=== PATIENT | female | born 1990 | race Caucasian/White ===

== ENCOUNTER → 2019-12-15 13:13 | Outpatient (BNVA) | payer OTHER, SELFPAY | PROVIDERS: Visit Provider Advanced Practice Midwife | DX: Z34.80 Encounter for supervision of other normal pregnancy, unspecified trimester (principal) | CPT/HCPCS: 81025; 99211 ==

== ENCOUNTER 2019-12-16 09:11 | Outpatient (REF) | payer OTHER, SELFPAY ==
--- NOTE | 2019-12-16 09:39 | US_ITS ---
EXAMINATION: FIRST TRIMESTER OB ULTRASOUND CLINICAL INFORMATION: Unknown LMP. Check size and dates. COMPARISON: None TECHNIQUE: Transabdominal first trimester OB ultrasound FINDINGS: The uterus is normal in size and shape. There is an intrauterine gestational sac. Dane-rump length measures 0.6 cm suggesting gestational age of 6 weeks 3 days with estimated date of delivery of 08/07/2020. heart rate is 115 bpm. There is a yolk sac. The right ovary measures 4.2 x 3.6 x 2.6 cm and contains a 2.2 x 2.4 x 2 cm cyst. The left ovary measures 3.1 x 2.2 x 2.6 cm and is normal-appearing. There is no fluid in the pelvis. IMPRESSION: Single viable intrauterine . From today's measurements gestational age is estimated at 6 weeks 3 days with estimated date of delivery of 08/07/2020. Low normal heart rate of 115 bpm.
== END 2019-12-16 09:12 | disposition home or self-care (01) ==
LOC: HO.US 09:11
PROVIDERS: Visit Provider Advanced Practice Midwife
DX: Z34.81 Encounter for supervision of other normal pregnancy, first trimester (principal)
CPT/HCPCS: 76801

== ENCOUNTER 2019-12-24 09:23 | Outpatient (REF) | payer OTHER, SELFPAY ==
--- NOTE | 2019-12-24 10:08 | US_ITS ---
EXAMINATION: US OBSTETRICAL FOLLOW UP WITH BIOPHYSICAL PROFILE CLINICAL INFORMATION: Follow up low heart rate. COMPARISON: Previous exam 12/16/2019. TECHNIQUE: Real time transabdominal imaging with color and M-mode Doppler. FINDINGS: The uterus is normal in size and shape. There is an intrauterine gestational sac. Realitos-rump length measures 1.2 cm suggesting gestational age of 7 weeks 4 days with estimated date of delivery of 08/07/2020. heart rate is 161 bpm. There is a yolk sac. There is hypoechoic soft tissue adjacent to the gestational sac questionable for subchorionic hemorrhage. The maternal ovaries are normal. US/US OB follow up IMPRESSION: Single viable intrauterine . From today's measurements gestational age is estimated at 7 weeks 4 days with estimated date of delivery of 08/07/2020. Normal heart rate.
== END 2019-12-24 09:24 | disposition home or self-care (01) ==
LOC: HO.US 09:23
PROVIDERS: Visit Provider Advanced Practice Midwife
DX: O36.80X0 Pregnancy with inconclusive fetal viability, not applicable or unspecified (principal)
CPT/HCPCS: 76816

== ENCOUNTER → 2020-01-06 10:02 | Outpatient (BNVA) | payer OTHER, SELFPAY | PROVIDERS: Visit Provider Advanced Practice Midwife | DX: O99.331 Smoking (tobacco) complicating pregnancy, first trimester (principal); O34.219 Maternal care for unspecified type scar from previous cesarean delivery; Z3A.09 9 weeks gestation of pregnancy | CPT/HCPCS: 99212 ==

== ENCOUNTER 2020-01-17 09:25 | Outpatient (REF) | payer OTHER, SELFPAY ==
[2020-01-17 11:49] LABS: MANUAL DIFF FLAG NO
[2020-01-17 12:03] LABS: Basophils Percent Auto 0.2 % (0-2); Eosinophils Absolute Auto 0.2 X10*3/uL (0.0-0.4); Eosinophils Percent Auto 1.3 % (0-4); Hematocrit 42.7 % (37-47); Hemoglobin 13.9 g/dl (12.0-16.0); Imm Gran Abs Auto 0.04 X10*3/uL (0.00-0.03); Imm Gran Pct Auto 0.3 % (0.0-0.4); Lymphocytes Absolute Auto 2.4 X10*3/uL (1.2-4.9); Lymphocytes Percent Auto 18.5 % (20-40); Mean Corpuscular HGB Conc 32.6 g/dl (31.0-35.0); Mean Corpuscular Hemoglobin 28.1 pg (27.0-33.0); Mean Corpuscular Volume 86.3 fL (80-98); Mean Platelet Volume 10.8 fL (9.4-12.3); Monocytes Absolute Auto 0.5 X10*3/uL (0.1-1.2); Monocytes Percent Auto 4.2 % (2-11); Neutrophils Absolute Auto 9.6 X10*3/uL (2.0-8.3); Neutrophils Percent Auto 75.5 % (45-73); Platelet Count 299 X10*3/uL (160-400); Red Blood Count 4.95 X10*6/uL (4.20-5.50); Red Cell Distribution Width 13.1 % (11.0-16.0); White Blood Count 12.7 X10*3/uL (4.8-10.8)
[2020-01-17 12:44] LABS: Amphetamine Screen Urine Not Detected (Not Detect); Barbiturates, Urine Not Detected (Not Detect); Benzodiazepines Screen Urine Not Detected (Not Detect); Cannabinoid Screen Urine POSITIVE (Not Detect); Cocaine Screen Urine Not Detected (Not Detect); Opiate Screen Urine Not Detected (Not Detect); Phencyclidine Screen Urine Not Detected (Not Detect)
[2020-01-17 13:00] LABS: Syphilis Screen Nonreactive (Nonreactive)
[2020-01-18 08:28] LABS: HBsAGNum1 0.21 S/CO (0.00-0.99); HIV AB/AG Nonreactive (Nonreactive); Hepatitis B Surface Antigen Negative (Negative); ~HepC Num1 0.08 S/CO (0.00-0.79); ~Hepatitis C Antibody Nonreactive (Nonreactive)
[2020-01-18 09:06] LABS: Rubella IgG Antibody 2.49 index; Varicella IgG Antibody >4000.00 index
== END 2020-01-17 09:26 | disposition home or self-care (01) ==
LOC: HO.LAB 09:25
PROVIDERS: Visit Provider Advanced Practice Midwife
DX: Z34.90 Encounter for supervision of normal pregnancy, unspecified, unspecified trimester (principal)
CPT/HCPCS: 36415; 80307; 85025; 86762; 86780; 86787; 86803; 86850; 86886; 86900; 86901; 87086; 87340; 87389

== ENCOUNTER 2020-01-19 11:28 | Outpatient (REF) | payer OTHER, SELFPAY ==
[2020-01-20 02:53] LABS: CT PCR NOT DETECTED (Not Detect.); NG PCR NOT DETECTED (Not Detect.)
== END 2020-01-19 11:29 | disposition home or self-care (01) ==
LOC: HO.LAB 11:28
PROVIDERS: Visit Provider Advanced Practice Midwife
DX: Z34.80 Encounter for supervision of other normal pregnancy, unspecified trimester (principal); Z13.31 Encounter for screening for depression; F17.200 Nicotine dependence, unspecified, uncomplicated
CPT/HCPCS: 87491; 87591

== ENCOUNTER 2020-01-21 13:57 | Outpatient (REF) | payer OTHER, SELFPAY ==
--- NOTE | 2020-01-21 14:03 | US_ITS ---
EXAMINATION: OBSTETRICAL ULTRASOUND, FIRST TRIMESTER HISTORY: 29-year-old at 11.4 weeks of gestation BMI 43.4 NT screening COMPARISON: 12/24/2019 TECHNIQUE: Real time transabdominal imaging with color and M-mode Doppler. FINDINGS: A single, live IUP CRL of 58 mm c/w 12.3wks is noted. Heart Rate: 161 beats per minute. Normal yolk sac seen. NT was 1.1.mm. NB Present The embryo appears sonographically wnl for this GA. Both maternal ovaries are seen and appear normal. GESTATIONAL AGE: 1. Established GA: 11.4 wks 2. GA from [facility]: 12.3 wks ESTIMATED DATE OF DELIVERY: 1. Established SARIKA: 08/07/2020 2. SARIKA from [facility]: 08/01/2020 US/US OB 1T nuc measure IMPRESSION: 1. A single live IUP 2. Size equals dates 3. NT of 1.1 mm MFM Consultation: I reviewed the ultrasound findings along with significance of NT measurement. The NT of less than 3mm is generally reassuring. However, the sensitivity for T21 detection is only 60%. I reviewed the availability of serum aneuploidy screening which includes cell-free DNA and placental protein based tests. I discussed the sensitivity, false-positive rate, and other limitations associated with each test. I also reviewed the availability of invasive diagnostic tests that are associated small but definite risk of miscarriage. We also reviewed the differences between screening tests and diagnostic tests. After our discussion, she opted for the First trimester screening that is based on cell-free DNA or non-invasive testing (NIPT). The result will be faxed to your office in approximately 7 days. A follow up at 18 weeks for survey has been scheduled. Thank you very much for this referral. Majority of this visit was spent reviewing her care and counselling her in face to face time: Time spent 20 min.
== END 2020-01-21 13:58 | disposition home or self-care (01) ==
LOC: HO.US 13:57
PROVIDERS: Visit Provider Advanced Practice Midwife
DX: Z34.90 Encounter for supervision of normal pregnancy, unspecified, unspecified trimester (principal); Z36.82 Encounter for antenatal screening for nuchal translucency
CPT/HCPCS: 76813

== ENCOUNTER → 2020-02-16 11:30 | Outpatient (BNVA) | payer OTHER, SELFPAY | PROVIDERS: Visit Provider Advanced Practice Midwife | DX: Z76.89 Persons encountering health services in other specified circumstances (principal) ==

== ENCOUNTER → 2020-03-15 15:25 | Outpatient (BNVA) | payer OTHER, SELFPAY | PROVIDERS: PCP Internal Medicine; Visit Provider Advanced Practice Midwife | DX: Z76.89 Persons encountering health services in other specified circumstances (principal) | CPT/HCPCS: 99212 ==

== ENCOUNTER 2020-03-17 11:56 | Outpatient (REF) | payer OTHER, SELFPAY ==
--- NOTE | 2020-03-17 12:03 | US_ITS ---
EXAMINATION: US OBSTETRICAL CLINICAL INFORMATION: 29-year-old at 19.4 weeks of gestation Suspected anomaly COMPARISON: 01/21/2020 TECHNIQUE: Real-time transabdominal ultrasound was performed using C1-5 megahertz transducer. FINDINGS: A single, active, fetus is seen in breech presentation. The placenta is posterior without previa, and the amniotic fluid volume is wnl. MEASUREMENTS: 1. Biparietal Diameter: 5.1 cm; 21.3 wks 2. Occipital Frontal Diameter: 6.3 cm 3. Head Circumference: 18.0 cm; 20.4 wks 4. Abdominal Circumference: 15.4 cm; 20.4 wks 5. Femur Length: 2.3 cm; 20.2 wks 6. Humerus Length: 3.2 cm; 20.5 wks 7. Tibia Length: 2.8 cm; 20.2 wks 8. Ulna Length: 3.1 cm; 21.3 wks 9. Lateral ventricle: 0.49 cm 10. Cerebellum: 2.1 cm; 21.2 wks 11. Cisterna Magna: 0.4 cm 12. Nuchal Fold: 3.7 mm 13. Heart Rate: 150 beats per minute Rt ovary: normal Lt ovary: normal Cervical length 3.6 cm on T/A. Marginal placental cord insertion was noted. GESTATIONAL AGE: 1. Established GA: 19.4 wks 2. GA from [facility]: 20.5 wks ESTIMATED DATE OF DELIVERY: 1. Established SARIKA: 08/07/2020 2. SARIKA from [facility]: 07/30/2020 ANATOMY: The visualized anatomy includes but not limited to: 1. Cranium: Normal 2. Intracranial anatomy: cavum septum pellucidi, lateral ventricles, choroid plexus, cerebellum, posterior fossa, third and fourth ventricles. 3. face: orbits, lip/palate, profile, nasal bone 4. Heart: four-chamber view of the heart, ventricular septum, foramen ovale, pulmonary vein, left and right outflow tracts, three-vessel view, 3 vessel trachea view, aortic and ductal arches, situs.. 5. Diaphragm: Normal 6. Abdominal wall: Normal 7. Cord Insertion: Normal 8. Spine: Cervical, thoracic, lumbar, sacral. 9. Stomach: Normal size and shape 10. Right Kidney: Normal 11. Left Kidney: Normal 12. 3 vessel cord: Normal 13. Upper extremity: Open hands, fifth digit. 14. Lower extremity: Tibia, fibula, bilateral feet. 15. Bladder: Normal 16. Genitalia: Male, patient aware US/US OB /maternal detail IMPRESSION: 1. Single, living, intrauterine with appropriate biometry. 2. Normal survey DISCUSSION: I reviewed today's ultrasound findings. We discussed the limitations of ultrasound in diagnosing aneuploidy and other congenital abnormalities. I reviewed the differences between screening test and diagnostic test. Amniocentesis was discussed and declined. Marginal placental cord insertion has been associated with increased incidence of IUGR. Interval growth evaluation throughout the is suggested. She was informed that the baseline incidence of congenital abnormalities is approximately 3-5%. Not all these conditions are diagnosable in utero. RECOMMENDATIONS: Thank you for allowing me to participate in her care. Visiting time 20 minutes. (3,10,7)
== END 2020-03-17 11:57 | disposition home or self-care (01) ==
LOC: HO.US 11:56
PROVIDERS: Visit Provider Advanced Practice Midwife
DX: O35.8XX0 Maternal care for other (suspected) fetal abnormality and damage, not applicable or unspecified (principal); O99.332 Smoking (tobacco) complicating pregnancy, second trimester; Z3A.19 19 weeks gestation of pregnancy
CPT/HCPCS: 76811

== ENCOUNTER → 2020-04-11 10:35 | Outpatient (BNVA) | payer OTHER, SELFPAY | PROVIDERS: PCP Internal Medicine; Visit Provider Obstetrics & Gynecology | DX: O09.629 Supervision of young multigravida, unspecified trimester (principal) | CPT/HCPCS: 99212 ==

== ENCOUNTER → 2020-05-11 10:31 | Outpatient (BNVA) | payer OTHER, SELFPAY | PROVIDERS: Visit Provider Advanced Practice Midwife | DX: Z13.89 Encounter for screening for other disorder (principal) | CPT/HCPCS: 99212 ==

== ENCOUNTER 2020-05-17 08:56 | Outpatient (REF) | payer OTHER, SELFPAY ==
[2020-05-17 10:42] LABS: MANUAL DIFF FLAG NO
[2020-05-17 10:45] LABS: Basophils Percent Auto 0.2 % (0-2); Eosinophils Absolute Auto 0.2 X10*3/uL (0.0-0.4); Eosinophils Percent Auto 1.1 % (0-4); Hematocrit 39.6 % (37-47); Hemoglobin 13.1 g/dl (12.0-16.0); Imm Gran Abs Auto 0.08 X10*3/uL (0.00-0.03); Imm Gran Pct Auto 0.6 % (0.0-0.4); Lymphocytes Absolute Auto 2.2 X10*3/uL (1.2-4.9); Lymphocytes Percent Auto 16.5 % (20-40); Mean Corpuscular HGB Conc 33.1 g/dl (31.0-35.0); Mean Corpuscular Hemoglobin 28.5 pg (27.0-33.0); Mean Corpuscular Volume 86.1 fL (80-98); Mean Platelet Volume 10.6 fL (9.4-12.3); Monocytes Absolute Auto 0.5 X10*3/uL (0.1-1.2); Monocytes Percent Auto 3.7 % (2-11); Neutrophils Absolute Auto 10.4 X10*3/uL (2.0-8.3); Neutrophils Percent Auto 77.9 % (45-73); Platelet Count 253 X10*3/uL (160-400); Red Cell Distribution Width 13.2 % (11.0-16.0); White Blood Count 13.4 X10*3/uL (4.8-10.8)
[2020-05-17 11:05] LABS: Glucose 1 Hour PP 50gm Dose 117 mg/dL (60-140)
[2020-05-17 11:36] LABS: Syphilis Screen Nonreactive (Nonreactive)
== END 2020-05-17 08:57 | disposition home or self-care (01) ==
LOC: HO.LAB 08:56
PROVIDERS: Visit Provider Obstetrics & Gynecology
DX: Z34.83 Encounter for supervision of other normal pregnancy, third trimester (principal); Z11.3 Encounter for screening for infections with a predominantly sexual mode of transmission
CPT/HCPCS: 36415; 85025; 86780; 86850; 86900; 86901

== ENCOUNTER → 2020-05-25 10:35 | Outpatient (BNVA) | payer OTHER, SELFPAY | PROVIDERS: Visit Provider Advanced Practice Midwife | DX: O43.193 Other malformation of placenta, third trimester (principal); Z3A.29 29 weeks gestation of pregnancy; F17.200 Nicotine dependence, unspecified, uncomplicated; Z98.891 History of uterine scar from previous surgery | CPT/HCPCS: 81003; 99212 ==

== ENCOUNTER 2020-05-26 09:09 | Outpatient (REF) | payer OTHER, SELFPAY ==
--- NOTE | ~2020-05-26 | US_ITS ---
EXAMINATION: US OBSTETRICAL (BIOPHYSICAL PROFILE) CLINICAL INFORMATION: 23-year-old at 33.1 weeks of gestation Gestational diabetes on insulin COMPARISON: 03/10/2020 TECHNIQUE: Biophysical profile is performed over 30 minutes with assessment of breathing, gross body movement, tone, and qualitative amniotic fluid volume. FINDINGS: POSITION: Cephalic PLACENTA: Posterior, without previa AMNIOTIC FLUID INDEX: 19.98 cm CARDIAC ACTIVITY: 158 beats per minute BIOPHYSICAL PROFILE: Motion: 2 Tone: 2 Breathin Amniotic Fluid: 2 The total biophysical score is 8/8 US/US OB follow up IMPRESSION: 1. Single intrauterine gestation in vertex position. 2. Reassuring BPP and LILO Is currently on regular insulin 3 units before breakfast, 5 units before lunch and dinner. Reports that her fasting glucose values have gone down as well as in the 60s. However she is not symptomatic. Postprandial values are within normal limits with pre meal regular insulin. I reviewed today's findings and gave her reassurance. Advised her to try light snack after dinner before bedtime if her fasting values continue to be in the 60s. Thank you for allowing me to participate in her care. Total time 30 minutes. The time spent was devoted to counseling the patient about the disease and diagnosis, coordinating care including reviewing her records, pertinent lab data and studies, as well as discussing diagnostic evaluation and workup, plan therapeutic interventions and future disposition of care. This includes any additional research needed to obtain further information in formulating the plan of care of this patient. This note was generated with a voice recognition program. Please excuse any errors which may have been overlooked during my review of this note. Sometimes these errors may affect the content or meaning of a given sentence.
== END 2020-05-26 09:10 | disposition home or self-care (01) ==
LOC: HO.US 09:09
PROVIDERS: Visit Provider Advanced Practice Midwife
DX: O43.193 Other malformation of placenta, third trimester (principal); Z98.891 History of uterine scar from previous surgery
CPT/HCPCS: 76816

== ENCOUNTER → 2020-06-08 10:32 | Outpatient (BNVA) | payer OTHER, SELFPAY | PROVIDERS: Visit Provider Advanced Practice Midwife | CPT/HCPCS: 99212 ==

== ENCOUNTER → 2020-06-12 10:07 | Outpatient (BNVA) | payer OTHER, SELFPAY | PROVIDERS: Visit Provider Obstetrics & Gynecology | DX: Z98.891 History of uterine scar from previous surgery (principal); Z3A.32 32 weeks gestation of pregnancy | CPT/HCPCS: 81003; 99212 ==

== ENCOUNTER → 2020-06-28 10:51 | Outpatient (BNVA) | payer OTHER, SELFPAY | PROVIDERS: Visit Provider Obstetrics & Gynecology | DX: O43.193 Other malformation of placenta, third trimester (principal); Z98.891 History of uterine scar from previous surgery; Z3A.34 34 weeks gestation of pregnancy | CPT/HCPCS: 59025; 99212 ==

== ENCOUNTER 2020-06-30 09:37 | Outpatient (REF) | payer OTHER, SELFPAY ==
--- NOTE | ~2020-06-30 | US_ITS ---
EXAMINATION: OBSTETRICAL ULTRASOUND, Follow up HISTORY: 29-year-old at the 34.4 weeks of gestation High BMI Size date discrepancy Marginal placental cord insertion COMPARISON: 05/26/2020 TECHNIQUE: Real time transabdominal imaging with color and M-mode Doppler. PRESENTATION: Vertex PLACENTA LOCATION: Posterior without previa AMNIOTIC FLUID: LILO 13.9 MEASUREMENTS: 1. Biparietal Diameter: 9.0 cm; 36.4 wks 2. Head Circumference: 32.0 cm; 36.1 wks 3. Abdominal Circumference: 32.2 cm; 36.2 wks 4. Femur Length: 6.6 cm; 34.1 wks 5. Heart Rate: 152 beats per minute WEIGHT: EFW: 2728 grams (6 lbs 0 oz) -- 76 %. BIOPHYSICAL PROFILE: Motion: 2 Tone: 2 Breathin Amniotic Fluid: 2 Total score: 8/8 Marginal placental cord insertion GESTATIONAL AGE: 1. Established GA: 34.4 wks 2. GA from [facility]: 35.6 wks ESTIMATED DATE OF DELIVERY: 1. Established SARIKA: 08/07/2020 2. SARIKA from [facility]: 07/29/2020 US/US OB biophysical profile IMPRESSION: 1. A single active fetus is in the vertex presentation 2. Size equals dates, EFW corresponds to 76 percentile 3. BPP 8 out of 8 with normal amniotic fluid volume I reviewed today's ultrasound findings and informed her that compared to previous exam, there has been appropriate interval growth. So far there is no sonographic suggestion of placental insufficiency. Marginal placental cord insertion does not appear to be affecting the growth. We discussed the limitations of ultrasound and estimating weights. As long as EFW is the below 90th percentile, a possibility of macrosomia is unlikely. Thank you very much for this referral. Total time 20 minutes. The time spent was devoted to counseling the patient about the disease and diagnosis, coordinating care including reviewing her records, pertinent lab data and studies, as well as discussing diagnostic evaluation and workup, plan therapeutic interventions and future disposition of care. This includes any additional research needed to obtain further information in formulating the plan of care of this patient. This note was generated with a voice recognition program. Please excuse any errors which may have been overlooked during my review of this note. Sometimes these errors may affect the content or meaning of a given sentence.
== END 2020-06-30 09:38 | disposition home or self-care (01) ==
LOC: HO.US 09:37
PROVIDERS: Visit Provider Obstetrics & Gynecology
DX: O99.213 Obesity complicating pregnancy, third trimester (principal); Z3A.34 34 weeks gestation of pregnancy
CPT/HCPCS: 76819

== ENCOUNTER → 2020-07-04 15:05 | Outpatient (BNVA) | payer OTHER, SELFPAY | PROVIDERS: Visit Provider Advanced Practice Midwife | DX: O43.193 Other malformation of placenta, third trimester (principal); Z3A.35 35 weeks gestation of pregnancy; F17.200 Nicotine dependence, unspecified, uncomplicated; F12.90 Cannabis use, unspecified, uncomplicated; Z98.891 History of uterine scar from previous surgery | CPT/HCPCS: 59025; 81003; 99212 ==

== ENCOUNTER 2020-07-07 14:11 | Outpatient (REF) | payer OTHER, SELFPAY ==
--- NOTE | ~2020-07-07 | US_ITS ---
EXAMINATION: US OBSTETRICAL (BIOPHYSICAL PROFILE) CLINICAL INFORMATION: 29-year-old at 35.4 weeks of gestation High BMI COMPARISON: 06/30/2020 TECHNIQUE: Biophysical profile is performed over 30 minutes with assessment of breathing, gross body movement, tone, and qualitative amniotic fluid volume. FINDINGS: POSITION: Cephalic PLACENTA: Right lateral without previa AMNIOTIC FLUID INDEX: 16.7 cm CARDIAC ACTIVITY: 133 beats per minute BIOPHYSICAL PROFILE: Motion: 2 Tone: 2 Breathin Amniotic Fluid: 2 The total biophysical score is 8/8 US/US OB biophysical profile IMPRESSION: 1. Single intrauterine gestation in vertex position. 2. Reassuring BPP and LILO Thank you for allowing me to participate in her care.
== END 2020-07-07 14:12 | disposition home or self-care (01) ==
LOC: HO.US 14:11
PROVIDERS: PCP Internal Medicine; Visit Provider Obstetrics & Gynecology
DX: E66.9 Obesity, unspecified (principal)
CPT/HCPCS: 76819

== ENCOUNTER → 2020-07-11 10:25 | Outpatient (BNVA) | payer OTHER, SELFPAY | PROVIDERS: PCP Internal Medicine; Visit Provider Advanced Practice Midwife | DX: O36.8130 Decreased fetal movements, third trimester, not applicable or unspecified (principal); Z3A.36 36 weeks gestation of pregnancy | CPT/HCPCS: 59025; 81003; 99212 ==

== ENCOUNTER 2020-07-14 14:21 | Outpatient (REF) | payer OTHER, SELFPAY ==
--- NOTE | ~2020-07-14 | US_ITS ---
EXAMINATION: OBSTETRICAL ULTRASOUND, Follow up HISTORY: 29-year-old at 36.4 weeks of gestation High BMI Size date discrepancy COMPARISON: 07/08/2019 TECHNIQUE: Real time transabdominal imaging with color and M-mode Doppler. PRESENTATION: Vertex PLACENTA LOCATION: Posterior without previa AMNIOTIC FLUID: LILO 14.9 cm MEASUREMENTS: 1. Biparietal Diameter: 9.3 cm; 37.6 wks 2. Head Circumference: 33.5 cm; 38.2 wks 3. Abdominal Circumference: 33.9 cm; 37.6 wks 4. Femur Length: 7.4 cm; 37.5 wks 5. Heart Rate: 124 beats per minute WEIGHT: EFW: 3322 grams (7 lbs 5 oz) -- 85 %. BIOPHYSICAL PROFILE: Motion: 2 Tone: 2 Breathin Amniotic Fluid: 2 Total score: 8/8 GESTATIONAL AGE: 1. Established GA: 36.4 wks 2. GA from [facility]: 38.0 wks ESTIMATED DATE OF DELIVERY: 1. Established SARIKA: 08/07/2020 2. SARIKA from [facility]: 07/28/2020 US/US OB follow up IMPRESSION: 1. A single active fetus is in vertex presentation 2. Size equals dates, EFW corresponds to 85th percentile 3. Reassuring biophysical profile I reviewed today's ultrasound findings and discussed the limitations of ultrasound and estimating weights. Although the EFW corresponds to 85th percentile, this does not predict macrosomia at term. She has had 2 prior sections and is planning on the third repeat elective . She is concerned that it is scheduled at 39.4 weeks of gestation. I reassured her that if there is an indication she can be delivered prior to that date. Thank you very much for this referral. Total time 30 minutes. The time spent was devoted to counseling the patient about the disease and diagnosis, coordinating care including reviewing her records, pertinent lab data and studies, as well as discussing diagnostic evaluation and workup, plan therapeutic interventions and future disposition of care. This includes any additional research needed to obtain further information in formulating the plan of care of this patient. This note was generated with a voice recognition program. Please excuse any errors which may have been overlooked during my review of this note. Sometimes these errors may affect the content or meaning of a given sentence.
== END 2020-07-14 14:22 | disposition home or self-care (01) ==
LOC: HO.US 14:21
PROVIDERS: PCP Internal Medicine; Visit Provider Obstetrics & Gynecology
DX: O99.213 Obesity complicating pregnancy, third trimester (principal); E66.9 Obesity, unspecified; Z3A.36 36 weeks gestation of pregnancy
CPT/HCPCS: 76816

== ENCOUNTER 2020-07-18 10:47 | Outpatient (REF) | payer OTHER, SELFPAY | END 2020-07-18 10:48 | disposition home or self-care (01) | LOC: HO.LAB 10:47 | PROVIDERS: PCP Internal Medicine; Visit Provider Obstetrics & Gynecology | DX: O99.213 Obesity complicating pregnancy, third trimester (principal); E66.9 Obesity, unspecified; O34.219 Maternal care for unspecified type scar from previous cesarean delivery; Z3A.37 37 weeks gestation of pregnancy | CPT/HCPCS: 59025; 87081; 99212 ==

== ENCOUNTER → 2020-07-25 10:45 | Outpatient (BNVA) | payer OTHER, SELFPAY | PROVIDERS: PCP Internal Medicine; Visit Provider Advanced Practice Midwife | DX: O43.193 Other malformation of placenta, third trimester (principal); E66.9 Obesity, unspecified; Z3A.38 38 weeks gestation of pregnancy; Z98.891 History of uterine scar from previous surgery | CPT/HCPCS: 59025; 81003; 99212 ==

== ENCOUNTER → 2020-08-10 11:13 | Outpatient (BNVA) | payer OTHER, SELFPAY | PROVIDERS: PCP Internal Medicine; Visit Provider Obstetrics & Gynecology | DX: T81.49XA Infection following a procedure, other surgical site, initial encounter (principal) | CPT/HCPCS: 99212 ==

== ENCOUNTER → 2020-09-06 10:47 | Outpatient (BNVA) | payer OTHER, SELFPAY | PROVIDERS: PCP Internal Medicine; Visit Provider Obstetrics & Gynecology | DX: Z39.2 Encounter for routine postpartum follow-up (principal); Z30.09 Encounter for other general counseling and advice on contraception | CPT/HCPCS: 99212 ==

== ENCOUNTER 2020-10-27 22:56 | Emergency (ER) | payer OTHER, SELFPAY ==
[2020-10-27 23:13] VITALS: BP 114/68; PULSE 75; RESP 16; TEMP 36.4; O2SAT 98; BMI 43.0
[2020-10-28 00:37] LABS: MANUAL DIFF FLAG NO
[2020-10-28 00:47] LABS: Basophils Percent Auto 0.4 % (0-2); Eosinophils Absolute Auto 0.2 X10*3/uL (0.0-0.4); Eosinophils Percent Auto 2.4 % (0-4); Hematocrit 40.5 % (37-47); Hemoglobin 13.2 g/dl (12.0-16.0); Imm Gran Abs Auto 0.03 X10*3/uL (0.00-0.03); Imm Gran Pct Auto 0.3 % (0.0-0.4); Lymphocytes Absolute Auto 3.2 X10*3/uL (1.2-4.9); Mean Corpuscular HGB Conc 32.6 g/dl (31.0-35.0); Mean Platelet Volume 10.1 fL (9.4-12.3); Monocytes Absolute Auto 0.6 X10*3/uL (0.1-1.2); Monocytes Percent Auto 6.2 % (2-11); Neutrophils Absolute Auto 5.2 X10*3/uL (2.0-8.3); Neutrophils Percent Auto 55.7 % (45-73); Platelet Count 284 X10*3/uL (160-400); Red Blood Count 4.88 X10*6/uL (4.20-5.50); White Blood Count 9.3 X10*3/uL (4.8-10.8)
[2020-10-28 01:11] LABS: Alanine Aminotransferase 36 U/L (0-31); Albumin Level 4.2 g/dL (3.5-5.0); Alkaline Phosphatase 97 U/L (39-117); Anion Gap 14 (12-20); Aspartate Amino Transferase 22 U/L (5-31); Bilirubin Total 0.2 mg/dL (0.0-1.0); Blood Urea Nitrogen 15 mg/dL (9-16); Calcium 9.4 mg/dL (8.4-10.2); Carbon Dioxide 26 mmol/L (22-29); Chloride 104 mmol/L (96-108); Estimated Glomerular Filt Rate > 60; Glucose Random 107 mg/dL (60-115); Potassium 4.3 mmol/L (3.3-5.1); Sodium 140 mmol/L (135-145)
[2020-10-28 02:00] VITALS: BP 92/54; PULSE 75; RESP 15; O2SAT 98
--- NOTE | 2020-10-28 02:04 | ED_ITS ---
HPI - Female Genitourinary General Chief complaint: Vaginal Bleeding Stated complaint: Abd pain Time Seen by Provider: 10/28/20 02:04 Source: patient Mode of arrival: ambulatory Limitations: no limitations History of Present Illness HPI Narrative: patient is 3 months post , had a week of a period. patient with cramping and back pain. Patient is concerned because she continues to spot Onset (ago): week(s) Severity: mild Quality of pain: cramping Consistency: intermittent Vaginal bleeding: scant Related Data Home Medications Medication Instructions Recorded Confirmed prenat.vits,marj,aim-[id number] 1 tab PO DAILY 02/16/20 acetaminophen 500 mg tablet 500 mg PO Q6H PRN 08/10/20 (Tylenol Extra Strength) docusate sodium 100 mg capsule 100 mg PO BID 08/10/20 ferrous sulfate 325 mg (65 mg 325 mg PO DAILY 08/10/20 iron) tablet ibuprofen 600 mg tablet 600 mg PO Q6H PRN 08/10/20 Previous Rx's Medication Instructions Recorded oxycodone 5 mg capsule 5 mg PO Q6H PRN #10 cap 08/09/20 amoxicillin 875 mg-potassium 1 tab PO BID 7 Days #14 tab 08/10/20 clavulanate 125 mg tablet (Augmentin) norelgestromin 150 mcg-e.estradiol 1 patch TRANSDERMAL QWEEK #3 ea 09/06/20 35 mcg/24 hr weekly transderm patch (Xulane) Allergies Allergy/AdvReac Type Severity Reaction Status Date / Time codeine [CODEINE] Allergy Intermediate NAUSEA & Verified 09/06/20 10:53 VOMITING Review of Systems Constitutional: Constitutional: Reports no additional constitutional complaints Eyes: Eyes: Reports no additional eye complaints ENT: Denies dizziness Cardiovascular: Cardiovascular: Reports no additional cardiovascular complaints Respiratory: Respiratory: Reports as per HPI Gastrointestinal: Gastrointestinal: Reports no additional gastrointestinal complaints Genitourinary: Genitourinary: Reports no additional female genitourinary complaints Musculoskeletal: Musculoskeletal: Reports no additional musculoskeletal complaints Integumentary/Breasts: Skin/Breast: Denies rash Neurologic: Reports system reviewed and no additional complaints, except as documented, Denies dizziness and Denies Sensory deficit (Neuro) Psychiatric: Psychiatric: Denies anxiety PMFSH Past Medical History Surgical History Hx of section Family History Family History Mother History of cirrhosis of liver History of mental disorder Hx of anxiety disorder History of depression History of alcohol abuse Father Hx of sleep apnea History of anxiety Maternal Grandmother No problems noted. Maternal Grandfather History of COPD Paternal Grandmother Hx of bilateral hip replacements History of COPD Paternal Grandfather Hx of primary hypertension Hx of coronary artery disease Sister No problems noted. Brother No problems noted. Maternal Aunt No problems noted. 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.) Physical Exam Vital Signs: Vital Signs: Last Vital Signs Temp 97.6 F 10/27/20 23:13 Pulse 62 10/28/20 04:00 Resp 15 10/28/20 04:00 BP 105/42 L 10/28/20 04:00 Pulse Ox 98 10/28/20 04:00 Body Mass Index 43.0 Const: General: healthy appearing Nutritional Appearance: average body habitus Orientation/consciousness: oriented to person and patient oriented x3 Limitations: no limitations HENMT: Head: Yes normal to inspection Ears: external ears normal General nose exam: Normal external nose present Mouth: Normal oral and palatal mucosa present and oropharynx normal Throat: Yes posterior oropharynx normal Eyes: General: appearance normal, both eyes and all related structures Neck: Other: supple Neck: Yes normal visual inspection Chest: Chest palpation & inspection: normal inspection of the chest Resp: Auscultation: clear to auscultation bilaterally Cardio: Jugular venous distension: no JVD Rate: regular rate Rhythm: regular rhythm Heart sounds: S1 normal heart sound present and S2 normal heart sound present GI: Inspection: Yes normal to inspection Palpation (GI): Soft to palpation, nontender and No hepatosplenomegaly present Auscultation: normal bowel sounds : General: Yes no CVA tenderness Back/Spine/Pelvis: Back: no CVA tenderness Skin: General skin exam: no rashes or lesions noted Neuro: General: oriented to person and patient oriented x3 Cranial nerves: Yes CN's II-XII intact bilaterally Motor exam (neuro): 5/5 motor strength present throughout Sensory Exam: No Sensory deficit (Neuro) Extrem: General: Yes normal to inspection Psych: Appearance: grossly normal Course Reevaluation(s) Reevaluation #1: Patient is not or anemic, she is not actively bleeding. will dc home. No evidence of UTI Time: 04:48 [facility] - Female Genitourinary Lab Data Result diagrams: 10/28/20 00:32 10/28/20 00:32 Labs: Lab Results 10/28/20 10/28/20 10/28/20 Range/Units 00:32 00:32 01:57 WBC 9.3 (4.8-10.8) X10*3/uL RBC 4.88 (4.20-5.50) X10*6/uL Hgb 13.2 (12.0-16.0) g/dl Hct 40.5 (37-47) % MCV 83.0 (80-98) fL MCH 27.0 (27.0-33.0) pg MCHC 32.6 (31.0-35.0) g/dl RDW 14.0 (11.0-16.0) % Plt Count 284 (160-400) X10*3/uL MPV 10.1 (9.4-12.3) fL Immature Gran % (Auto) 0.3 (0.0-0.4) % Neut % (Auto) 55.7 (45-73) % Lymph % (Auto) 35.0 (20-40) % [place] % (Auto) 6.2 (2-11) % Eos % (Auto) 2.4 (0-4) % Baso % (Auto) 0.4 (0-2) % Lymph # (Auto) 3.2 (1.2-4.9) X10*3/uL [place] # (Auto) 0.6 (0.1-1.2) X10*3/uL Eos # (Auto) 0.2 (0.0-0.4) X10*3/uL Baso # (Auto) 0.0 (0.0-0.2) X10*3/uL Abs Immat Gran (auto) 0.03 (0.00-0.03) X10*3/uL Absolute Neuts (auto) 5.2 (2.0-8.3) X10*3/uL Absolute Nucleated RBC 0.000 (0.0-0.012) X10*3/uL Nucleated RBC % (auto) 0.0 (0.0-0.2) /100WBC Sodium 140 (135-145) mmol/L Potassium 4.3 (3.3-5.1) mmol/L Chloride 104 (96-108) mmol/L Carbon Dioxide 26 (22-29) mmol/L Anion Gap 14 (12-20) BUN 15 (9-16) mg/dL Creatinine 0.80 (0.5-1.4) mg/dL Estim Creat Clear Calc 127.0 Estimated GFR > 60 Random Glucose 107 (60-115) mg/dL Calcium 9.4 (8.4-10.2) mg/dL Total Bilirubin 0.2 (0.0-1.0) mg/dL AST 22 (5-31) U/L ALT 36 H (0-31) U/L Alkaline Phosphatase 97 (39-117) U/L Total Protein 7.0 (6.5-8.0) g/dL Albumin 4.2 (3.5-5.0) g/dL Urine Color YELLOW Urine Appearance CLEAR Urine pH 6.0 (5.0-8.0) Ur Specific [place] 1.025 (1.005-1.025) Urine Protein NEG (NEG-TRACE) MG/DL Urine Glucose (UA) NEG (NEG) MG/DL Urine Ketones NEG (NEG) MG/DL Urine Blood 3+ H (NEG) Urine Nitrite NEG (NEG) Ur Leukocyte Esterase NEG (NEG) Urine RBC 10-14 H (0) /HPF Urine WBC 0-2 (0-4) /HPF Ur Squamous Epith Cells 2+ /LPF Urine Bacteria TRACE /LPF Urine Mucus TRACE /LPF Urine Test (NEGATIVE) 10/28/20 Range/Units 01:57 WBC (4.8-10.8) X10*3/uL RBC (4.20-5.50) X10*6/uL Hgb (12.0-16.0) g/dl Hct (37-47) % MCV (80-98) fL MCH (27.0-33.0) pg MCHC (31.0-35.0) g/dl RDW (11.0-16.0) % Plt Count (160-400) X10*3/uL MPV (9.4-12.3) fL Immature Gran % (Auto) (0.0-0.4) % Neut % (Auto) (45-73) % Lymph % (Auto) (20-40) % [place] % (Auto) (2-11) % Eos % (Auto) (0-4) % Baso % (Auto) (0-2) % Lymph # (Auto) (1.2-4.9) X10*3/uL [place] # (Auto) (0.1-1.2) X10*3/uL Eos # (Auto) (0.0-0.4) X10*3/uL Baso # (Auto) (0.0-0.2) X10*3/uL Abs Immat Gran (auto) (0.00-0.03) X10*3/uL Absolute Neuts (auto) (2.0-8.3) X10*3/uL Absolute Nucleated RBC (0.0-0.012) X10*3/uL Nucleated RBC % (auto) (0.0-0.2) /100WBC Sodium (135-145) mmol/L Potassium (3.3-5.1) mmol/L Chloride (96-108) mmol/L Carbon Dioxide (22-29) mmol/L Anion Gap (12-20) BUN (9-16) mg/dL Creatinine (0.5-1.4) mg/dL Estim Creat Clear Calc Estimated GFR Random Glucose (60-115) mg/dL Calcium (8.4-10.2) mg/dL Total Bilirubin (0.0-1.0) mg/dL AST (5-31) U/L ALT (0-31) U/L Alkaline Phosphatase (39-117) U/L Total Protein (6.5-8.0) g/dL Albumin (3.5-5.0) g/dL Urine Color Urine Appearance Urine pH (5.0-8.0) Ur Specific [place] (1.005-1.025) Urine Protein (NEG-TRACE) MG/DL Urine Glucose (UA) (NEG) MG/DL Urine Ketones (NEG) MG/DL Urine Blood (NEG) Urine Nitrite (NEG) Ur Leukocyte Esterase (NEG) Urine RBC (0) /HPF Urine WBC (0-4) /HPF Ur Squamous Epith Cells /LPF Urine Bacteria /LPF Urine Mucus /LPF Urine Test NEGATIVE (NEGATIVE) Discharge Plan Discharge Clinical Impression: Vaginal bleeding Patient Disposition: Home, Self-Care Instructions: Menorrhagia (ED) Prescriptions: No Action oxycodone 5 mg capsule 5 mg PO Q6H PRN (Reason: pain) Qty: 10 RF: 0 prenat.vits,marj,[id number] Tablet 1 tab PO DAILY RF: 0 Xulane 150-35 mcg/24 hr patch weekly 1 patch transdermal QWEEK Qty: 3 RF: 11 ibuprofen 600 mg tablet 600 mg PO Q6H PRNRF: 0 docusate sodium 100 mg capsule 100 mg PO BID RF: 0 ferrous sulfate 325 mg (65 mg iron) tablet 325 mg PO DAILY RF: 0 acetaminophen [Tylenol Extra Strength] 500 mg tablet 500 mg PO Q6H PRNRF: 0 amoxicillin-pot clavulanate [Augmentin] 875-125 mg tablet 1 tab PO BID 7 Days Qty: 14 RF: 0 Referrals: Anant Villanueva MD [Primary Care Provider] - 1 week
[2020-10-28 02:08] LABS: Appearance Urine CLEAR; Color Urine YELLOW; Glucose Urine UA NEG (NEG); Leukocyte Esterase Urine NEG (NEG); Nitrite Urine NEG (NEG); Specific Gravity - Urine 1.025 (1.005-1.025); UACC Culture Trigger NO; Urine Blood 3+ (NEG); Urine Ketones NEG (NEG); Urine Protein NEG (NEG-TRACE)
[2020-10-28 02:09] LABS: UPreg QC Valid YES; Urine Pregnancy NEGATIVE (NEGATIVE)
[2020-10-28 02:13] LABS: Bacteria Urine TRACE /LPF; Mucus Urine TRACE /LPF; Squamous Epithelial Cell Urine 2+ /LPF; WBC Urine 0-2 /HPF (0-4)
[2020-10-28 02:20] VITALS: BP 97/49; PULSE 67; RESP 15; O2SAT 96
[2020-10-28 04:00] VITALS: BP 105/42; PULSE 62; RESP 15; O2SAT 98
== END 2020-10-28 05:27 | disposition home or self-care (01) ==
PROVIDERS: Emergency Provider Emergency Medicine; PCP Internal Medicine
DX: N93.9 Abnormal uterine and vaginal bleeding, unspecified (principal); R10.9 Unspecified abdominal pain; F17.210 Nicotine dependence, cigarettes, uncomplicated; F12.90 Cannabis use, unspecified, uncomplicated
CPT/HCPCS: 36415; 80053; 81001; 81025; 85025; 99283; 99284

== ENCOUNTER 2021-05-02 21:32 | Emergency (ER) | payer OTHER, SELFPAY ==
[2021-05-02 21:35] VITALS: BP 139/84; PULSE 87; RESP 18; TEMP 36.4; O2SAT 100; BMI 41.1
[2021-05-02 21:48] LABS: MANUAL DIFF FLAG NO
[2021-05-02 21:49] LABS: Basophils Percent Auto 0.4 % (0-2); Eosinophils Absolute Auto 0.2 X10*3/uL (0.0-0.4); Eosinophils Percent Auto 1.5 % (0-4); Hematocrit 40.3 % (37.0-47.0); Hemoglobin 13.5 g/dl (12.0-16.0); Imm Gran Abs Auto 0.03 X10*3/uL (0.00-0.03); Imm Gran Pct Auto 0.3 % (0.0-0.4); Lymphocytes Absolute Auto 3.5 X10*3/uL (1.2-4.9); Lymphocytes Percent Auto 32.2 % (20-40); Mean Corpuscular HGB Conc 33.5 g/dl (31.0-35.0); Mean Corpuscular Hemoglobin 28.2 pg (27.0-33.0); Mean Corpuscular Volume 84.3 fL (80.0-98.0); Mean Platelet Volume 9.9 fL (9.4-12.3); Monocytes Absolute Auto 0.6 X10*3/uL (0.1-1.2); Monocytes Percent Auto 5.8 % (2-11); Neutrophils Absolute Auto 6.5 x10*3/uL (2.0-8.3); Neutrophils Percent Auto 59.8 % (45-73); Platelet Count 363 X10*3/uL (160-400); Red Blood Count 4.78 X10*6/uL (4.20-5.50); Red Cell Distribution Width 12.8 % (11.0-16.0); White Blood Count 10.9 X10*3/uL (4.8-10.8)
[2021-05-02 21:55] LABS: INTERNATIONAL NORM RATIO 1.1 (0.9-1.1); Prothrombin Time 12.9 SEC (9.9-13.0)
[2021-05-02 22:06] LABS: Appearance Urine CLEAR; Color Urine YELLOW; Glucose Urine UA NEG (NEG); Leukocyte Esterase Urine NEG (NEG); Nitrite Urine NEG (NEG); UACC Culture Trigger NO; Urine Blood 3+ (NEG); Urine Ketones NEG (NEG); Urine Protein NEG (NEG-TRACE)
[2021-05-02 22:08] LABS: UPreg QC Valid YES; Urine Pregnancy NEGATIVE (NEGATIVE)
[2021-05-02 22:20] LABS: Anion Gap 12 (12-20); Blood Urea Nitrogen 12 mg/dL (9-16); Calcium 9.9 mg/dL (8.4-10.2); Carbon Dioxide 26 mmol/L (22-29); Chloride 103 mmol/L (96-108); Creatinine Clr Calc Pharmacy 145.8; Estimated Glomerular Filt Rate > 60; Glucose Random 91 mg/dL (60-115); Potassium 4.1 mmol/L (3.3-5.1); Sodium 137 mmol/L (135-145)
[2021-05-02 22:23] LABS: Mucus Urine TRACE /LPF; Squamous Epithelial Cell Urine TRACE /LPF; WBC Urine 0 /HPF (0-4)
[2021-05-02 22:35] VITALS: BP 107/55; PULSE 71; RESP 16; TEMP 36.6; O2SAT 97
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
== END 2021-05-02 23:35 | disposition home or self-care (01) ==
PROVIDERS: Emergency Provider Emergency Medicine; PCP Internal Medicine Infectious Disease
DX: N93.9 Abnormal uterine and vaginal bleeding, unspecified (principal); T45.515A Adverse effect of anticoagulants, initial encounter; Y92.9 Unspecified place or not applicable; F17.200 Nicotine dependence, unspecified, uncomplicated; F12.90 Cannabis use, unspecified, uncomplicated
CPT/HCPCS: 36415; 80048; 81001; 81025; 85025; 85610; 85730; 99283

== ENCOUNTER 2021-09-20 08:51 | Outpatient (REF) | payer OTHER, SELFPAY ==
[2021-09-20 11:28] LABS: HCG Quantitative 67 mIU/mL
[2021-09-20 18:07] LABS: CT PCR NOT DETECTED (Not Detect.); NG PCR NOT DETECTED (Not Detect.)
[2021-09-24 21:12] LABS: HPV mRNA E6/E7 rflx Not Detected (Not Detected)
== END 2021-09-20 08:52 | disposition home or self-care (01) ==
LOC: HO.LAB 08:51
PROVIDERS: PCP Internal Medicine Infectious Disease; Visit Provider Advanced Practice Midwife
DX: Z01.411 Encounter for gynecological examination (general) (routine) with abnormal findings (principal); Z11.51 Encounter for screening for human papillomavirus (HPV); Z20.2 Contact with and (suspected) exposure to infections with a predominantly sexual mode of transmission; N92.1 Excessive and frequent menstruation with irregular cycle
CPT/HCPCS: 36415; 81025; 84702; 87491; 87591; 87624; 88142

== ENCOUNTER 2021-09-21 10:45 | Outpatient (REF) | payer OTHER, SELFPAY ==
--- NOTE | ~2021-09-21 | US_ITS ---
EXAMINATION: OBSTETRICAL ULTRASOUND, FIRST TRIMESTER HISTORY: 31-year-old at 5.3 weeks of gestation LMP: 08/13/2021 uncertain COMPARISON: None TECHNIQUE: Real time transabdominal imaging with color and M-mode Doppler. Transvaginal ultrasound was performed using an endovaginal probe. FINDINGS: There is an empty uterus with thickened endometrial stripe. No evidence of IUP. Both maternal ovaries are seen and appear normal. No free fluid in the cul-de-sac. GESTATIONAL AGE: 1. GA from LMP: 5.3 wks 2. GA from AUA: N/A wks ESTIMATED DATE OF DELIVERY: 1. SARIKA from LMP: 05/17/2022 2. SARIKA from AUA: N/A US/US OB pelvic and transvaginal IMPRESSION: 1. There is no sonographic evidence of IUP. Thickened endometrial stripe is noted. 2. Normal ovaries Discussion: Patient reports that her period has been irregular. Although she believes her LMP was 08/13/2021, she most likely conceived at the end in August or early September. Her serum beta hCG was 65. I reviewed today's findings and informed her that today's finding is consistent with the early . Please follow-up as clinically indicated and follow her serum beta hCG. Thank you very much for this referral. This note was generated with a voice recognition program. Please excuse any errors which may have been overlooked during my review of this note. Sometimes these errors may affect the content or meaning of a given sentence.
--- NOTE | ~2021-09-21 | US_ITS ---
EXAMINATION: OBSTETRICAL ULTRASOUND, FIRST TRIMESTER HISTORY: 31-year-old at 5.3 weeks of gestation LMP: 08/13/2021 uncertain COMPARISON: None TECHNIQUE: Real time transabdominal imaging with color and M-mode Doppler. Transvaginal ultrasound was performed using an endovaginal probe. FINDINGS: There is an empty uterus with thickened endometrial stripe. No evidence of IUP. Both maternal ovaries are seen and appear normal. No free fluid in the cul-de-sac. GESTATIONAL AGE: 1. GA from LMP: 5.3 wks 2. GA from AUA: N/A wks ESTIMATED DATE OF DELIVERY: 1. SARIKA from LMP: 05/17/2022 2. SARIKA from AUA: N/A US/US OB <= 14 weeks fetus IMPRESSION: 1. There is no sonographic evidence of IUP. Thickened endometrial stripe is noted. 2. Normal ovaries Discussion: Patient reports that her period has been irregular. Although she believes her LMP was 08/13/2021, she most likely conceived at the end in August or early September. Her serum beta hCG was 65. I reviewed today's findings and informed her that today's finding is consistent with the early . Please follow-up as clinically indicated and follow her serum beta hCG. Thank you very much for this referral. This note was generated with a voice recognition program. Please excuse any errors which may have been overlooked during my review of this note. Sometimes these errors may affect the content or meaning of a given sentence.
== END 2021-09-21 10:46 | disposition home or self-care (01) ==
LOC: HO.US 10:45
PROVIDERS: Visit Provider Advanced Practice Midwife
DX: Z34.91 Encounter for supervision of normal pregnancy, unspecified, first trimester (principal); Z3A.01 Less than 8 weeks gestation of pregnancy
CPT/HCPCS: 76801; 76817

== ENCOUNTER 2021-09-24 09:01 | Outpatient (REF) | payer OTHER, SELFPAY ==
[2021-09-24 10:26] LABS: HCG Quantitative 488 mIU/mL
== END 2021-09-24 09:02 | disposition home or self-care (01) ==
LOC: HO.LAB 09:01
PROVIDERS: PCP Internal Medicine; Visit Provider Advanced Practice Midwife
DX: N92.1 Excessive and frequent menstruation with irregular cycle (principal)
CPT/HCPCS: 36415; 84702

== ENCOUNTER 2021-09-26 14:51 | Outpatient (REF) | payer OTHER, SELFPAY ==
[2021-09-26 16:26] LABS: HCG Quantitative 812 mIU/mL
== END 2021-09-26 14:52 | disposition home or self-care (01) ==
LOC: HO.LAB 14:51
PROVIDERS: PCP Internal Medicine; Visit Provider Advanced Practice Midwife
DX: O20.0 Threatened abortion (principal)
CPT/HCPCS: 36415; 84702

== ENCOUNTER 2021-10-01 12:36 | Outpatient (REF) | payer OTHER, SELFPAY ==
--- NOTE | ~2021-10-01 | US_ITS ---
EXAMINATION: US OBSTETRICAL ULTRASOUND CLINICAL INFORMATION: Follow up early . COMPARISON: Pelvic ultrasound 09/21/2021. LMP: 08/27/2021, ensure. TECHNIQUE: Ultrasound of the maternal pelvis is performed using transabdominal and transvaginal transducers. Transvaginal imaging is performed due to inadequate visualization transabdominally. M-mode Doppler is also performed. FINDINGS: The uterus was not measured. No uterine lesions are noted. The endometrium measures 0.4 cm in thickness with no identifiable gestational sac nor focal abnormality. The ovaries are normal in morphology with preserved flow at the moment of this examination. The right ovary measures 4.2 x 2.3 x 3.0 cm and the left ovary measures 3 x 2 x 2.5 cm. A 1.9 x 1.4 x 1.9 cm simple cyst is noted in the right ovary. In the right adnexa, separate from the right ovary, there is a nonspecific somewhat elongated/tubular structure measuring 5 x 1.5 x 1.3 cm. No free fluid. US/US OB pelvic and transvaginal IMPRESSION: 1. No evidence of intrauterine . 2. Nonspecific somewhat elongated structure in the right adnexa, which appears to be from the right ovary, and not definitely identified on the prior examination. Differentials are broad, including ectopic , although appearance is not typical. This could also potentially represent an interposed loop of bowel Recommend correlation with quantitative hCG and close follow-up with imaging.
[2021-10-01 16:15] LABS: HCG Quantitative 182 mIU/mL
== END 2021-10-01 12:37 | disposition home or self-care (01) ==
LOC: HO.US 12:36
PROVIDERS: Absent Provider Obstetrics & Gynecology; PCP Internal Medicine; Visit Provider Advanced Practice Midwife
DX: O26.91 Pregnancy related conditions, unspecified, first trimester (principal)
CPT/HCPCS: 36415; 76801; 76817; 84702; 99212

== ENCOUNTER 2021-10-01 16:30 | Outpatient (REF) | payer OTHER, SELFPAY ==
[2021-10-02 09:54] LABS: CT PCR NOT DETECTED (Not Detect.); NG PCR NOT DETECTED (Not Detect.)
== END 2021-10-01 16:31 | disposition home or self-care (01) ==
LOC: HO.LAB 16:30
PROVIDERS: Visit Provider Obstetrics & Gynecology
DX: Z11.3 Encounter for screening for infections with a predominantly sexual mode of transmission (principal)
CPT/HCPCS: 87491; 87591

== ENCOUNTER 2021-10-03 09:17 | Outpatient (REF) | payer OTHER, SELFPAY ==
--- NOTE | ~2021-10-03 | US_ITS ---
EXAMINATION: US OBSTETRICAL ULTRASOUND CLINICAL INFORMATION: , suspicious for ectopic. Beta-hCG performed 10/01/2021 is 182 COMPARISON: Ultrasound 10/01/2021 and 09/21/2021. LMP: 08/27/2021. Gestational age by maternal dates is 5 weeks 2 days. Estimated date of delivery by maternal dates is 06/03/2022. TECHNIQUE: Transabdominal and transvaginal imaging of pelvis is performed. FINDINGS: The uterus is anteverted and appears unremarkable. Endometrial stripe is normal measuring 0.76 cm. No intrauterine is seen. The left ovary is normal measuring 1.62 x 3.06 x 2.36 cm. The right ovary is visualized with small follicular cysts measuring 3.85 x 1.79 x 3.08 cm. There is a paraovarian anechoic cyst measuring 1.78 x 1.77 cm. Adjacent and posterior to the ovary is a tubular elliptical lesion measuring 5.48 x 1.65 cm with areas of hypoechogenicity. It appears similar to previous exam where it measured 5.0 x 1.5 and 1.3 cm. Whether this represents tubo-ovarian scar or a nonviable tubal is questioned. There is no free fluid in the cul-de-sac. Patient still has spotting. US/US OB <= 14 weeks fetus IMPRESSION: No evidence of intrauterine . Normal endometrial thickness. Elongated an ellipsoid lesion in the right adnexa adjacent to the right ovary and the paraovarian cyst. It measures 5 cm similar to previous study. Whether this represents tubo-ovarian scar, tubal or a paraovarian mass is questioned. Based on its CT of 182 from 10/01/2021 tubular is low on the list. Findings were discussed with Dr. Ruben Leonardo by phone at 11:00 AM
[2021-10-03 11:52] LABS: Hematocrit 44.6 % (37.0-47.0); Hemoglobin 14.7 g/dl (12.0-16.0); Mean Corpuscular Hemoglobin 28.2 pg (27.0-33.0); Mean Corpuscular Volume 85.6 fL (80.0-98.0); Mean Platelet Volume 10.5 fL (9.4-12.3); Platelet Count 316 X10*3/uL (160-400); Red Blood Count 5.21 X10*6/uL (4.20-5.50); Red Cell Distribution Width 13.3 % (11.0-16.0); White Blood Count 11.4 X10*3/uL (4.8-10.8)
[2021-10-03 12:21] LABS: HCG Quantitative 177 mIU/mL
== END 2021-10-03 09:18 | disposition home or self-care (01) ==
LOC: HO.US 09:17
PROVIDERS: Visit Provider Obstetrics & Gynecology
DX: O26.91 Pregnancy related conditions, unspecified, first trimester (principal)
CPT/HCPCS: 36415; 76801; 84702; 85027; 99212

== ENCOUNTER 2021-10-05 12:31 | Outpatient (REF) | payer OTHER, SELFPAY ==
[2021-10-05 13:33] LABS: HCG Quantitative 46 mIU/mL
== END 2021-10-05 12:32 | disposition home or self-care (01) ==
LOC: HO.LAB 12:31
PROVIDERS: PCP Internal Medicine; Visit Provider Obstetrics & Gynecology
DX: O26.91 Pregnancy related conditions, unspecified, first trimester (principal)
CPT/HCPCS: 36415; 84702

== ENCOUNTER 2021-10-10 10:49 | Outpatient (REF) | payer OTHER, SELFPAY ==
[2021-10-10 12:00] LABS: HCG Quantitative 6 mIU/mL
== END 2021-10-10 10:50 | disposition home or self-care (01) ==
LOC: HO.LAB 10:49
PROVIDERS: PCP Internal Medicine; Visit Provider Obstetrics & Gynecology
DX: O26.91 Pregnancy related conditions, unspecified, first trimester (principal)
CPT/HCPCS: 36415; 84702

== ENCOUNTER 2022-02-15 14:59 | Outpatient (REF) | payer OTHER, SELFPAY ==
--- NOTE | ~2022-02-15 | US_ITS ---
EXAMINATION: US OBSTETRICAL CLINICAL INFORMATION: follow-up COMPARISON: CT abdomen pelvis 10/19/2018, obstetrical ultrasound 03/17/2020 TECHNIQUE: Real-time ultrasound was performed using transabdominal and transvaginal imaging.. FINDINGS: The uterus is retroverted in position. Within the endometrial cavity is a well formed gestation sac. A yolk sac is present The crown-rump length of 0.4 cm corresponds to a sonographic age of 6 weeks and 1 day This yields an estimated sonographic date of delivery of 10/10/2021. Dates by LMP correspond to 4 weeks and 4 days for an SARIKA of 10/21/2022. The heart beat is regular and normal rate measuring 116 beats per minute. The right ovary measures 3.6 x 1.9 x 2.3 cm, and the left ovary measures 3.2 x 2.5 x 2.9 cm. A 7 mm echogenic right ovarian lesion without internal vascularity and a 7 mm echogenic left ovarian lesion without internal vascularity could potentially reflect tiny dermoids. Trace simple free fluid in the pelvis. US/US pelvic and transvaginal IMPRESSION: Single live intrauterine estimated to be a sonographic age of 6 weeks and 1 day. Estimated date of delivery is 10/10/2021. Bilateral 7 mm echogenic avascular ovarian lesions, could potentially reflect any dermoids. Recommend continued gynecologic management and attention on follow-up. If findings persist on follow-up, annual sonographic surveillance is recommended. Uterus is retroverted in position. A simple free fluid in the pelvis within physiologic limits of volume.
[2022-02-15 18:15] LABS: HCG Quantitative 21128 mIU/mL
== END 2022-02-15 15:00 | disposition home or self-care (01) ==
LOC: HO.US 14:59
PROVIDERS: PCP Internal Medicine; Visit Provider Obstetrics & Gynecology
DX: O26.891 Other specified pregnancy related conditions, first trimester (principal); N83.9 Noninflammatory disorder of ovary, fallopian tube and broad ligament, unspecified
CPT/HCPCS: 36415; 76830; 76856; 84702

== ENCOUNTER → 2022-03-08 09:01 | Outpatient (BNVA) | payer OTHER, SELFPAY | PROVIDERS: PCP Internal Medicine; Visit Provider Nurse Practitioner Family | DX: F07.81 Postconcussional syndrome (principal); F41.9 Anxiety disorder, unspecified; F09 Unspecified mental disorder due to known physiological condition | CPT/HCPCS: 99212 ==

== ENCOUNTER 2022-03-19 10:56 | Outpatient (REF) | payer BC, OTHER, SELFPAY ==
[2022-03-19 13:12] LABS: HCG Quantitative 25 mIU/mL
== END 2022-03-19 10:57 | disposition home or self-care (01) ==
LOC: HO.LAB 10:56
PROVIDERS: PCP Internal Medicine; Visit Provider Obstetrics & Gynecology
DX: N83.291 Other ovarian cyst, right side (principal); N83.292 Other ovarian cyst, left side; Z98.890 Other specified postprocedural states; Z30.09 Encounter for other general counseling and advice on contraception
CPT/HCPCS: 36415; 84702; 99212

== ENCOUNTER 2022-04-24 14:26 | Outpatient (REF) | payer BC, OTHER, SELFPAY ==
--- NOTE | ~2022-04-24 | US_ITS ---
EXAMINATION: US PELVIS CLINICAL INFORMATION: Ovarian cyst unspecified site. COMPARISON: Pelvic ultrasound 02/15/2022. TECHNIQUE: Ultrasound of the pelvis is performed using both transabdominal and transvaginal transducers along with Doppler. Transvaginal imaging is performed due to inadequate visualization transabdominally. FINDINGS: Uterus: The uterus is retroverted and measures 7.8 x 3.9 x 4.9 cm. The uterus appears normal. The previously seen intrauterine is not visible currently. The double wall endometrial thickness is 13 mm. The uterus is smooth in contour and has normal myometrial echogenicity. No visible fibroid. Adnexa: Both ovaries are visualized. There is normal color flow to the adnexa. There is no ovarian torsion. There is no pelvic ascites or fluid collection. Right ovary measures 4.3 x 2.6 x 2.9 cm. 17.5 mL. There is a 1.7 x 1.7 x 1.6 cm lesion in the right ovary with central hyperechogenicity and peripheral hypoechogenicity. This may represent a corpus luteal cyst. There are additional normal follicles. The echogenic lesion seen previously is not seen today. Left ovary measures 3.3 x 2.6 x 3.0 cm. 13.1 mL. Normal follicles. The echogenic lesion seen previously is not seen today. US/US pelvic and transvaginal IMPRESSION: The previously seen intrauterine is not seen today. Recommend clinical correlation. 1.7 cm lesion in the right ovary as described above may represent a corpus luteal cyst. Consider short-term follow-up. The previously seen small echogenic lesions in both ovaries are not seen today.
== END 2022-04-24 14:27 | disposition home or self-care (01) ==
LOC: HO.HMGCX 14:26
PROVIDERS: Visit Provider Obstetrics & Gynecology
DX: N83.299 Other ovarian cyst, unspecified side (principal)
CPT/HCPCS: 76830; 76856

== ENCOUNTER 2022-05-08 11:18 | Outpatient (REF) | payer BC, OTHER, SELFPAY ==
[2022-05-08 13:58] LABS: HCG Quantitative < 2 mIU/mL
== END 2022-05-08 11:19 | disposition home or self-care (01) ==
LOC: HO.LAB 11:18
PROVIDERS: PCP Internal Medicine; Visit Provider Obstetrics & Gynecology
DX: N83.291 Other ovarian cyst, right side (principal); N83.292 Other ovarian cyst, left side; N91.2 Amenorrhea, unspecified; Z98.890 Other specified postprocedural states
CPT/HCPCS: 36415; 84702; 99212

== ENCOUNTER → 2022-05-20 08:57 | Outpatient (BNVA) | payer BC, OTHER, SELFPAY | PROVIDERS: PCP Internal Medicine; Visit Provider Psychiatry & Neurology Neurology | DX: F07.81 Postconcussional syndrome (principal); F41.9 Anxiety disorder, unspecified; F09 Unspecified mental disorder due to known physiological condition | CPT/HCPCS: 99212 ==

== ENCOUNTER → 2022-05-29 13:51 | Outpatient (BNVA) | payer BC, OTHER, SELFPAY | PROVIDERS: PCP Internal Medicine; Visit Provider Nurse Practitioner Family | DX: F07.81 Postconcussional syndrome (principal); F09 Unspecified mental disorder due to known physiological condition; H93.19 Tinnitus, unspecified ear; Z79.899 Other long term (current) drug therapy | CPT/HCPCS: 99212 ==

== ENCOUNTER 2022-11-28 11:52 | Outpatient (AMB) | payer BC, SELFPAY ==
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
== END 2022-11-28 13:18 | disposition home or self-care (01) ==
LOC: HO.HSMS 11:52
PROVIDERS: PCP Internal Medicine; Visit Provider Nurse Practitioner Family
DX: F41.9 Anxiety disorder, unspecified (principal); F07.81 Postconcussional syndrome; G44.309 Post-traumatic headache, unspecified, not intractable; Z04.3 Encounter for examination and observation following other accident
CPT/HCPCS: 99214

== ENCOUNTER → 2022-11-28 11:52 | Outpatient (BNVA) | payer BC, SELFPAY | PROVIDERS: PCP Internal Medicine; Visit Provider Nurse Practitioner Family | DX: F07.81 Postconcussional syndrome (principal); F09 Unspecified mental disorder due to known physiological condition ==

== ENCOUNTER 2023-04-11 15:25 | Outpatient (REF) | payer BC, SELFPAY ==
--- NOTE | ~2023-04-11 | US_ITS ---
EXAMINATION: US PELVIS CLINICAL INFORMATION: Ovarian cyst, LMP 03/17/2023 COMPARISON: 04/24/2022 TECHNIQUE: Ultrasound of the pelvis is performed using both transabdominal and transvaginal transducers along with Doppler. Transvaginal imaging is performed due to inadequate visualization transabdominally. FINDINGS: Uterus: The uterus is retroflexed and measures 9.5 x 4.4 x 5.1 cm. The double wall endometrial thickness is 1.2 mm. The uterus is smooth in contour and has normal myometrial echogenicity. No visible fibroid. Adnexa: Both ovaries are visualized. There is normal color flow to the adnexa. There is no ovarian torsion. There is no pelvic ascites or fluid collection. Right ovary measures 4.6 x 2.8 x 3.4 cm. Right intraovarian corpus luteal cyst measuring 2.3 cm. Left ovary measures 4.2 x 2.0 x 2.7 cm. Small volume free fluid. US/US pelvic and transvaginal IMPRESSION: Right intraovarian corpus luteal cyst measuring 2.3 cm. Small volume free fluid.
== END 2023-04-11 15:26 | disposition home or self-care (01) ==
LOC: HO.HMGCX 15:25
PROVIDERS: PCP Internal Medicine; Visit Provider Obstetrics & Gynecology
DX: N83.299 Other ovarian cyst, unspecified side (principal)
CPT/HCPCS: 76830; 76856

== ENCOUNTER 2023-04-22 14:41 | Outpatient (AMB) | payer BC, SELFPAY ==
--- NOTE | 2023-04-22 14:43 | MHC.OFFVIS ---
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 Pelvic ultrasound done recently showed the following: Uterus: The uterus is retroflexed and measures 9.5 x 4.4 x 5.1 cm. The double wall endometrial thickness is 1.2 mm. The uterus is smooth in contour and has normal myometrial echogenicity. No visible fibroid. Adnexa: Both ovaries are visualized. There is normal color flow to the adnexa. There is no ovarian torsion. There is no pelvic ascites or fluid collection. Right ovary measures 4.6 x 2.8 x 3.4 cm. Right intraovarian corpus luteal cyst measuring 2.3 cm. Left ovary measures 4.2 x 2.0 x 2.7 cm. Small volume free fluid. 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 Maternal Grandfather History of COPD Paternal Grandmother Hx of bilateral hip replacements History of COPD Ovarian cancer Paternal Grandfather Hx of primary hypertension Hx of coronary artery disease Sister No problems noted. Brother No problems noted. Maternal Aunt No problems noted. 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 Instructions given to patient to call in case of pelvic pain, abnormal uterine bleeding, fever above 100.4, or any other concerns. All questions answered, the patient verbalized understanding Coding Level of Care Code Est Pt Level 3 (37897) Diagnoses Corpus luteum cyst N83.10
[2023-04-22 14:45] VITALS: BP 116/74; BMI 39.4
== END 2023-04-22 14:52 | disposition home or self-care (01) ==
LOC: HO.HWS 14:41
PROVIDERS: PCP Internal Medicine; Visit Provider Obstetrics & Gynecology
DX: N83.10 Corpus luteum cyst of ovary, unspecified side (principal)
CPT/HCPCS: 99213

== ENCOUNTER → 2023-04-22 14:41 | Outpatient (BNVA) | payer BC, SELFPAY | PROVIDERS: PCP Internal Medicine; Visit Provider Obstetrics & Gynecology ==

== ENCOUNTER 2023-06-19 09:19 | Outpatient (AMB) | payer BC, SELFPAY ==
[2023-06-19 09:35] VITALS: BP 120/60; PULSE 78; O2SAT 98
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
== END 2023-06-19 10:34 | disposition home or self-care (01) ==
PROVIDERS: PCP Internal Medicine; Visit Provider Nurse Practitioner Family
DX: F43.10 Post-traumatic stress disorder, unspecified (principal); F07.81 Postconcussional syndrome; F41.9 Anxiety disorder, unspecified
CPT/HCPCS: 99214

== ENCOUNTER → 2023-06-19 09:19 | Outpatient (BNVA) | payer BC, SELFPAY | PROVIDERS: PCP Internal Medicine; Visit Provider Nurse Practitioner Family ==

== ENCOUNTER 2023-07-10 10:55 | Outpatient (AMB) | payer BC, SELFPAY ==
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
== END 2023-07-10 12:37 | disposition home or self-care (01) ==
LOC: HO.HOP 10:55
PROVIDERS: PCP Internal Medicine; Visit Provider Clinical Nurse Specialist Psychiatric/Mental Health
DX: F43.10 Post-traumatic stress disorder, unspecified (principal); F90.2 Attention-deficit hyperactivity disorder, combined type; F42.2 Mixed obsessional thoughts and acts
CPT/HCPCS: 90792

== ENCOUNTER → 2023-07-10 10:55 | Outpatient (BNVA) | payer BC, SELFPAY | PROVIDERS: PCP Internal Medicine; Visit Provider Clinical Nurse Specialist Psychiatric/Mental Health | DX: F43.10 Post-traumatic stress disorder, unspecified (principal); F90.2 Attention-deficit hyperactivity disorder, combined type; F42.2 Mixed obsessional thoughts and acts | CPT/HCPCS: 90792 ==

== ENCOUNTER 2023-12-19 11:04 | Outpatient (AMB) | payer BC, SELFPAY ==
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
[2023-12-19 11:09] VITALS: BMI 42.4
== END 2023-12-19 11:49 | disposition home or self-care (01) ==
PROVIDERS: PCP Internal Medicine; Visit Provider Nurse Practitioner Family
DX: F41.9 Anxiety disorder, unspecified (principal); F07.81 Postconcussional syndrome; F09 Unspecified mental disorder due to known physiological condition; Z33.1 Pregnant state, incidental
CPT/HCPCS: 99214

== ENCOUNTER → 2023-12-19 11:04 | Outpatient (BNVA) | payer BC, SELFPAY | PROVIDERS: PCP Internal Medicine; Visit Provider Nurse Practitioner Family ==